=== PATIENT | male | born 1985 | race Caucasian/White ===

== ENCOUNTER 2022-05-28 20:11 | Observation (INO) | payer OTHER, SELFPAY ==
[2022-05-28] VITALS (9 sets, daily range): BP systolic 108–135; BP diastolic 58–91; PULSE 65–85; RESP 16; TEMP 36.6–37.1; O2SAT 97–98; BMI 25.0; BMI 26.0
--- NOTE | 2022-05-28 20:26 | EDS_ITS ---
HPI HPI - GI History of Present Illness Chief Complaint: Abd Pain Narrative Narrative: 37-year-old male presenting with right lower quadrant pain. He states he started having pain in the periumbilical and right lower quadrant area on Tuesday morning. He had a little bit of diarrhea. He is not vomiting. He has subjective fevers at home but they do not have a thermometer or have not checked his temperature. He was seen in office today and states he had blood work drawn but does not the results of this. He had a CT scan performed at [facility] today which shows acute appendicitis. PFSH PFSH Allergy/AdvReac Type Severity Reaction Status Date / Time No Known Allergies Allergy Verified 05/28/22 20:13 Social History Smoking Status: Never smoker ROS ROS ED Constitutional Constitutional ED: Reports fever(s) and subjective ENT ENT ED: Denies rhinorrhea or sore throat Cardiovascular Cardiovascular: Denies chest pain or palpitations Respiratory/Chest Respiratory/Chest: Denies cough or dyspnea Gastrointestinal Gastrointestinal: Reports abdominal pain and diarrhea; Denies constipation, nausea or vomiting Genitourinary Genitourinary ED: Denies dysuria or hematuria Musculoskeletal Musculoskeletal: Denies arthralgias Integumentary Denies abscess Neurologic Neurologic: Denies headache(s) or paresthesias Psychiatric Psychiatric: Denies anxiety Endocrine Endocrinology: Denies polydipsia or polyphagia EXAM Physical Exam Const Vital Signs: 05/28/22 20:12 05/28/22 20:44 05/28/22 21:06 Temperature 98.2 F 98.2 F 98.2 F Temperature Source Temporal Temporal Temporal Pulse Rate 85 85 85 Respiratory Rate 16 16 16 Blood Pressure 135/91 H 135/91 H 135/91 H Blood Pressure Mean 105 105 105 Pulse Ox 98 98 98 Oxygen Delivery Method Room Air Room Air Room Air Positive well nourished General Appearance ED: NAD; Negative for pallor HEENT Reports moist mucous membranes normocephalic and atraumatic Eyes PERRL and EOMs intact bilaterally Resp normal respiratory effort and clear to auscultation bilaterally Auscultation: Negative for rales, rhonchi or wheezes Cardio regular rate and regular rhythm GI Palpation: tender RLQ and McBurney's point Back/Spine no CVA tenderness Neuro CN's II-XII intact bilaterally Sensorium / Orientation: alert Motor Exam: strength 5/5 throughout Psych mental status grossly normal and thought process normal Skin General Skin Exam: Negative for jaundice or pallor MDM MDM MDM Narrative Medical decision making narrative: Patient presenting with right lower quadrant pain. He had a diagnostic outpatient CT today which showed acute appendicitis. Patient is given Zosyn and. He declines pain medication. I spoke with Dr. Adkins he was going to come evaluate the patient. Patient was registered incorrectly so I had to look him up in our system. See results below. He did not have any lab work in our system today. I did obtain basic lab work and his CBC shows a white blood cell count of 10.3, hemoglobin stable 14.4, platelets normal at 253. Renal function and electrolytes within normal limits with exception of a potassium of 3.4. Urinalysis negative for infection. Dr. Adkins came to evaluate the patient [facility] Patient stable upon transfer. Impression: 1. Acute appendicitis Lab Data Attestation: I reviewed the patient's lab results. Labs: Laboratory Results - last 24 hr 05/28/22 05/28/22 05/28/22 20:20 20:32 20:32 WBC 10.3 RBC 4.95 Hgb 14.4 Hct 43.1 MCV 87.1 MCH 29.1 MCHC 33.4 RDW Std Deviation 40.4 RDW Coeff of Eh 12.9 Plt Count 253 MPV 9.0 Immature Gran % (Auto) 0.300 Neut % (Auto) 67.2 Lymph % (Auto) 20.8 [place] % (Auto) 9.7 Eos % (Auto) 1.7 Baso % (Auto) 0.3 Absolute Neuts (auto) 6.9 Absolute Lymphs (auto) 2.14 Nucleated RBC % 0 Sodium 140 Potassium 3.4 L Chloride 105 Carbon Dioxide 31.0 Anion Gap 4 L BUN 9 Creatinine 0.83 Estim Creat Clear Calc 116.14 Est GFR (MDRD) Af Amer 136 Est GFR (MDRD) Non-Af 112 BUN/Creatinine Ratio 10.9 Glucose 96 Calcium 8.9 Urine Color Straw Urine Clarity Clear Urine pH 7.0 Ur Specific [place] 1.010 Urine Protein Negative Urine Glucose (UA) Normal Urine Ketones Negative Urine Occult Blood Negative Urine Nitrite Negative Urine Bilirubin Negative Urine Urobilinogen Normal Ur Leukocyte Esterase Negative Urine RBC 0 SEEN Urine WBC 0 SEEN Ur Squamous Epith Cells 0 SEEN Urine Bacteria 0 SEEN Urine Mucus 0 SEEN Radiography Diagnostic Testing: [facility] Imaging Services [address] [place] [address] Abdomen/Pelvis WITH Contrast MR#:? [id number] Acct: [id number] Name:DAPHNE LEACH Rep #: [id number] :?? 1985 M 37 ? From:? ? Cristofer Ayala MD PCP: ERIC Garza ? Status: REG CLI Study: Abdomen/Pelvis WITH Contrast ? Date of Exam: 05/28/22 Exam# [id number] ? Ordering Dr:? Rosi Dave STUDY:? CT ABDOMEN AND PELVIS WITH CONTRAST REASON FOR EXAM: ? Male, 37 years old.? Rule out Appendicitis vs. Diverticular disease. RADIATION DOSAGE (If Supplied By Facility):? CTDIvol = ( 9.08 ) mGy, DLP = ( 592.75 ) mGycm TECHNIQUE: ? Transaxial images were obtained from the dome of the diaphragm to the symphysis pubis without oral contrast. 85 ml ISOVUE 370 was administered.? Sagittal and coronal images were reconstructed. Individualized dose optimization techniques were used for this CT. COMPARISON: ? None. FINDINGS: The visualized lung bases are unremarkable.? The visualized portions of the heart are within normal limits. Normal liver.? Normal gallbladder and extrahepatic biliary system.? Normal spleen.? Normal pancreas. Normal bilateral adrenal glands. Normal right kidney.? Normal left kidney. Normal visualized stomach.? Normal small intestine.? Minor diverticular changes of the sigmoid colon without evidence for acute diverticulitis.. There is thickening of the bright of the retrocecal appendix and narrowing of lumen with periappendiceal stranding consistent with acute appendicitis. There is a trace of free fluid in the right paracolic gutter.? There is no periappendiceal abscess.. Normal abdominal aorta.? Normal inferior vena cava.? Normal retroperitoneum. Normal urinary bladder. Normal abdominal wall.? Normal osseous structures. CT/Abdomen/Pelvis WITH Contrast IMPRESSION: Findings consistent with acute appendicitis without periappendiceal abscess ? Electronically Signed: Cristofer Ayala MD at 20:02 EST Reading Location ID and State: [address] [place] [address] , Service support? , ? Discharge Plan Triage Chief Complaint: Abd Pain ED Provider: Franco Armendariz Dx/Rx/DC Orders Primary Care Provider: Rosi Dave
[2022-05-28 20:33] LABS: Bacteria 0 SEEN /hpf (None Seen); Mucous, Urine 0 SEEN /hpf (<or=2+); Red Blood Cells-Urine 0 SEEN /hpf (0-5); Squamous Epithelial Cells - UA 0 SEEN /hpf (0-5); White Blood Cells 0 SEEN /hpf (0-5)
[2022-05-28 20:35] LABS: Color, Urine Straw (Yellow); Glucose, Dipstick Normal (Normal); Ketone-Dipstick Negative (Negative); Leukocyte Esterase-Dipstick Negative /ul (Negative); Nitrite-Dipstick Negative (Negative); Occult Blood-Urine Negative /ul (Negative); Protein-Dipstick Negative (Negative); Urine Bilirubin Dipstick Negative (Negative); Urine Clarity Clear (Clear); Urine Urobilinogen Normal (Normal)
[2022-05-28] MEDS: 0.9% Normal Saline 1,000 ML 1000 ML IV (20:35)
[2022-05-28 20:40] LABS: Absolute Lymphocyte Count 2.14 X10^3/uL (0.83-4.51); Absolute Neutrophil Count 6.9 X10^3/uL (2.0-7.7); Basophil# 0.03 X10^3/uL; Basophil% 0.3 % (0-1); Eosinophil# 0.17 X10^3/uL; Eosinophils% 1.7 % (0-5); Hematocrit 43.1 % (40-54); Hemoglobin 14.4 g/dL (13.0-16.5); Lymphocyte # 2.14 X10^3/ul (0.83-4.51); Lymphocyte % 20.8 % (19-41); Mean Corp Hgb Conc 33.4 g/dL (32-36); Mean Corpuscular Hgb 29.1 pg (27.0-32.0); Mean Corpuscular Volume 87.1 fL (80-94); Monocyte% 9.7 % (0-10); NRBC Flagged by Analyzer 0 % (0-5); Neutrophil # 6.91 X10^3/uL (2.7-7.7); Neutrophil % 67.2 % (47-70); Platelet Count 253 K/mm3 (150-450); RBC Distribution Width CV 12.9 % (11.6-14.6); RBC Distribution Width SD 40.4 fl (35.1-43.9); Red Blood Count 4.95 M/mm3 (4.6-6.2); White Blood Count 10.3 K/mm3 (4.4-11.0)
[2022-05-28 20:56] LABS: Anion Gap 4 (5-15); BUN 9 mg/dL (7-18); BUN/Creat Ratio 10.9 RATIO (10-20); Calcium,Total 8.9 mg/dL (8.5-10.1); Chloride 105 mmol/L (98-107); Creatinine, Serum 0.83 mg/dL (0.70-1.30); EST Glomerular Filtration Rate 112 mL/min (>60); Est Glom Filt Rate - Afr Amer 136 mL/min (>60); Estimated Creatinine Clearance 116.14 ml/min; Glucose 96 mg/dL (74-106); Potassium 3.4 mmol/L (3.5-5.1); Sodium Level 140 mmol/L (136-145)
--- NOTE | 2022-05-28 21:11 | CON.PCM.SX_ITS ---
Assessment & Plan Assessment/Plan (1) Acute appendicitis: PLAN: My plan is to perform a laparoscopic appendectomy. We discussed the risks and benefits of the planned procedure. I have informed the patient that complications can occur including failure to complete the procedure. The patient had the opportunity to ask questions concerning the planned procedure. My staff has also explained the procedure to the patient in understandable terms and has given the patient printed material concerning the procedure. The patient freely consents to the procedure. HPI Consult Data Date of Consult: 05/28/22 HPI Narrative HPI Narrative: DAPHNE BISWAS, is a 37 M who presents with right lower quadrant pain.? He states he started having pain in the periumbilical and right lower quadrant area on morning.? He had a little bit of diarrhea.? He is not vomiting.? He has subjective fevers at home but they do not have a thermometer or have not checked his temperature.? He was seen in office today and states he had blood work drawn but does not the results of this.? He had a CT scan performed at [facility] today which shows acute appendicitis. PFSH Allergy/AdvReac Type Severity Reaction Status Date / Time No Known Allergies Allergy Verified 05/28/22 20:13 Social History Smoking Status: Never smoker ROS Constitutional Constitutional: Reports fever(s) Cardiovascular Cardiovascular: Denies chest pain Respiratory/Chest Respiratory/Chest: Denies cough or dyspnea Gastrointestinal Gastrointestinal: Reports abdominal pain and diarrhea; Denies nausea or vomiting Genitourinary Genitourinary: Denies change in urinary stream Physical Exam Const alert, oriented x3 and no apparent distress HEENT normocephalic and head/scalp atraumatic Eyes EOMs intact bilaterally Resp clear to auscultation bilaterally Cardio Rate: regular rate Rhythm: regular rhythm GI soft to palpation Palpation: tender McBurney's point and suprapubic and guarding Skin no rashes or lesions noted Lab / Micro Data Result Diagrams: 05/28/22 20:32 05/28/22 20:32 Labs: Laboratory Results - last 24 hr 05/28/22 20:20: Urine Color Straw, Urine Clarity Clear, Urine pH 7.0, Ur Specific [place] 1.010, Urine Protein Negative, Urine Glucose (UA) Normal, Urine Ketones Negative, Urine Occult Blood Negative, Urine Nitrite Negative, Urine Bilirubin Negative, Urine Urobilinogen Normal, Ur Leukocyte Esterase Negative, Urine RBC 0 SEEN, Urine WBC 0 SEEN, Ur Squamous Epith Cells 0 SEEN, Urine Bacteria 0 SEEN, Urine Mucus 0 SEEN 05/28/22 20:32: WBC 10.3, RBC 4.95, Hgb 14.4, Hct 43.1, MCV 87.1, MCH 29.1, MCHC 33.4, RDW Std Deviation 40.4, RDW Coeff of Eh 12.9, Plt Count 253, MPV 9.0, Immature Gran % (Auto) 0.300, Neut % (Auto) 67.2, Lymph % (Auto) 20.8, [place] % (Auto) 9.7, Eos % (Auto) 1.7, Baso % (Auto) 0.3, Absolute Neuts (auto) 6.9, Absolute Lymphs (auto) 2.14, Nucleated RBC % 0 05/28/22 20:32: Sodium 140, Potassium 3.4 L, Chloride 105, Carbon Dioxide 31.0, Anion Gap 4 L, BUN 9, Creatinine 0.83, Estim Creat Clear Calc 116.14, Est GFR (MDRD) Af Amer 136, Est GFR (MDRD) Non-Af 112, BUN/Creatinine Ratio 10.9, Gl ucose 96, Calcium 8.9
[2022-05-28] MEDS: Lactated Ringers 1,000 ML 15 ML IV (22:00)
--- NOTE | 2022-05-28 22:20 | APP_PTH ---
PATIENT: DAPHNE BISWAS LOC: [facility]3 U#:[id number] AGE/SX: 37/M ROOM: [facility] RE05/28/[address]: Dr. Wilfred Adkins MD : 1985 BED: 1 DIS: 05/29/2022 SPEC #: [id number] RECD: 05/31/22 06:33 STATUS: MONICA REPascual #: [id number] CHRISSY: 05/28/22 22:[address]: Wilfred Adkins DEPT: SURGICAL PATHOLOGY RECD BY: Shannon Everett ENTERED: 05/31/22 08:08 SP TYPE: APPENDIX OTHR DR: Rosi Dave, [employer] Tissues: Appendix, NOS Procedures: Surgery Specimen Level III HEADER OPERATION: Laparoscopic appendectomy PRE-OP DIAGNOSIS: Acute appendicitis TISSUE SUBMITTED: Appendix MICROSCOPIC DIAGNOSIS Appendix, appendectomy: Acute appendicitis and periappendicitis. KEREN:rosmery 06/01/2022 MICROSCOPIC DESCRIPTION Slides are reviewed. GROSS DESCRIPTION Received in fixative is one container labeled with the patient's name and designated appendix. The specimen consists of an appendix measuring 7 cm in length and up to 1 cm in diameter. The attached periappendiceal adipose tissue measures up to 2.5 cm in width. The serosal surface is covered with ramachandran, purulent exudate. No obvious perforation is identified. The mucosa is hemorrhagic. No fecalith is identified. Green Chain Marker sections are submitted in one cassette. / SJ:rg 05/31/2022 :2 CPT: 92832
[2022-05-28] MEDS: Bupivacaine 0.25% 30 ML Vial (22:33)
--- NOTE | 2022-05-28 22:48 | OP.PCM_ITS ---
Problems Associated Problem List Diagnoses (1) Acute appendicitis: Report of Operation Date of Procedure: 05/28/22 Pre-Operative Diagnosis: Acute appendicitis Post-Operative Diagnosis: Same Surgery/Procedure Performed:: Laparoscopic appendectomy Surgeon: Wilfred Adkins neck skewer: Nayely Marie Type of Anesthesia: General Anesthesiologist: Mariusz Maldonado Specimen's removed: Appendix Drains: None Estimated Blood Loss (mL): < 25 cc Description of Procedure: Patient was brought in the operating room. Placed in the supine position. Under excellent general anesthetic the abdomen was sterilely prepped and draped in usual fashion. Local was injected at the umbilicus. He had a previous incision I opened the same incision up dissected down he had a small umbilical defect I placed a 1012 trocar through this without difficulty and inflated his abdomen to 15 torr. He was placed in the headdown and rotated to the left position suprapubic #5 trocar was placed, left lower quadrant #5 trocar was placed. Both of these under direct visualization without injury to underlying structures. Patient was noted to have acute appendicitis it was stuck to the lateral wall and anterior abdominal wall on the right lower quadrant I dissected the small intestine away from this and dissected the appendix free. I came across the mesoappendix with the Enseal I then transected the base of the appendix with a 45 linear cutter. I had excellent hemostasis placed the specimen specimen bag delivered through the umbilical port without difficulty irrigated the pelvis area and the right upper quadrant good pneumostasis was no gely. I ran the small bowel no Meckel's diverticulum was identified. Remove the trochars under direct visualization good and the stasis was noted. Umbilical defect was closed with a [id number] stitch of 0 Vicryl. Skin incisions were closed with subcuticular stitches of 4-0 Monocryl. Steri-Strips were applied sterile dressings were applied and the patient tolerated the procedure well. Admit VTE Documentation VTE Present on Admission: No VTE Mechan Device Prophylaxis: SCD's VTE Pharm Prophylaxis ordered?: No Reason prophylaxis not ordered:: Procedure Not Indicated
[2022-05-29] MEDS: 0.9% Normal Saline 1,000 ML 75 ML IV (00:15)
[2022-05-29 01:52] VITALS: BP 108/51; PULSE 65; RESP 16; TEMP 36.8; O2SAT 97
[2022-05-29 03:53] VITALS: BP 105/57; PULSE 84; RESP 16; TEMP 36.9; O2SAT 97
[2022-05-29 09:00] VITALS: BP 108/58; PULSE 85; RESP 16; TEMP 36.7; O2SAT 100
--- NOTE | 2022-05-29 09:03 | EX.PCM.DISCH ---
Discharge Instructions Procedure Appendectomy Diet Discharge Diet: Light diet - advance as tolerated (if you have questions about your diet instructions, please talk to you doctor.) Activity Discharge Activity: May Not Drive (for 3-5 days or while taking narcotic pain meds.) May shower in (days): 1 Dressing / Incision Call your doctor if your incision/area has: Continuous Slow Oozing, Sudden Increased Bleeding, Increased Pain/ Swelling, Increased Redness and Foul Smelling Discharge Call your doctor if you observe: Fever of 101 or Higher Suture Line Care: Avoid Pulling/Pushing and Avoid Pinching/Bending Additional Dressing/Incision Instructions:: Keep dressing clean and dry. Change or remove dressing in 2 days. Leave steri strips for 1 week. May protect with a gauze bandaid. Follow Up Care Please Follow Up With: Ghazala Jones PA-C When: Call office to schedule an appointment to be seen in 1 week. Test Results: Test results from this visit will be discussed in further detail at your follow-up appointment, if applicable. Discharge Plan Admission Admit Date/Time: 05/28/22 23:33 Attending Provider: Wilfred Adkins Primary Care Provider: Rosi Dave Discharge Orders/Prescriptions Prescriptions: New oxycodone-acetaminophen [Endocet] 5-325 mg tablet 1 tab PO Q4H PRN (Reason: pain) 5 Days Qty: 20 0RF Referrals / Follow Up: Rosi Dave, MATHIEU-C [Primary Care Provider] - Ghazala Jones PA-C [Med Staff - [facility]] - Disposition Disposition (needs filled in before D/C Order can be placed): Home, Self Care
== END 2022-05-29 10:45 | disposition home or self-care (01) ==
LOC: ED 20:40 → AC 21:11 → MS3 05-29 09:03
PROVIDERS: Admitting Provider Surgery; Emergency Provider Student in an Organized Health Care Education/Training Program; PCP Nurse Practitioner Family; Visit Provider Surgery
PROC: 0DTJ4ZZ Resection of Appendix, Percutaneous Endoscopic Approach (ICD-10-PCS; CPT 44970; principal; 2022-05-28 22:00)
DX: K35.80 Unspecified acute appendicitis (principal); Q43.0 Meckel's diverticulum (displaced) (hypertrophic)
CPT/HCPCS: 44970; 00840; 80048; 81001; 85025; 88304; 96361; 96365; 96366; 99218; 99284; J7030; J7050; J7120; A4216; C1760; G0378; J2405

== ENCOUNTER → 2022-05-28 | Outpatient (CLI) | payer OTHER, SELFPAY ==
--- NOTE | 2022-05-28 17:38 | CT_ITS ---
STUDY: CT ABDOMEN AND PELVIS WITH CONTRAST REASON FOR EXAM: Male, 37 years old. Rule out Appendicitis vs. Diverticular disease. RADIATION DOSAGE (If Supplied By Facility): CTDIvol = ( 9.08 ) mGy, DLP = ( 592.75 ) mGycm TECHNIQUE: Transaxial images were obtained from the dome of the diaphragm to the symphysis pubis without oral contrast. 85 ml ISOVUE 370 was administered. Sagittal and coronal images were reconstructed. Individualized dose optimization techniques were used for this CT. COMPARISON: None. FINDINGS: The visualized lung bases are unremarkable. The visualized portions of the heart are within normal limits. Normal liver. Normal gallbladder and extrahepatic biliary system. Normal spleen. Normal pancreas. Normal bilateral adrenal glands. Normal right kidney. Normal left kidney. Normal visualized stomach. Normal small intestine. Minor diverticular changes of the sigmoid colon without evidence for acute diverticulitis.. There is thickening of the bright of the retrocecal appendix and narrowing of lumen with periappendiceal stranding consistent with acute appendicitis. There is a trace of free fluid in the right paracolic gutter. There is no periappendiceal abscess.. Normal abdominal aorta. Normal inferior vena cava. Normal retroperitoneum. Normal urinary bladder. Normal abdominal wall. Normal osseous structures. CT/Abdomen/Pelvis WITH Contrast IMPRESSION: Findings consistent with acute appendicitis without periappendiceal abscess Electronically Signed: Cristofer Ayala MD at 20:02 EST ,
== END | disposition home or self-care (01) ==
PROVIDERS: PCP Nurse Practitioner Family; Visit Provider Nurse Practitioner Family
DX: R10.31 Right lower quadrant pain (principal); R10.32 Left lower quadrant pain; R50.9 Fever, unspecified
CPT/HCPCS: 74177; Q9967; A4216